=== PATIENT | female | born 1980 | race Caucasian/White ===

== ENCOUNTER 2018-02-21 14:45 | Emergency (ER) | payer BC ==
[2018-02-21] MEDS: KETOROLAC 60 MG INJ IM (16:56)
== END 2018-02-21 17:06 | disposition home or self-care (01) ==
LOC: E/R 14:45 → FTE 17:06
DX: M54.41 Lumbago with sciatica, right side (principal); Z87.891 Personal history of nicotine dependence
CPT/HCPCS: 81025; 96372; 99284-25

== ENCOUNTER 2019-01-23 17:42 | Emergency (ER) | payer BC ==
[2019-01-23] MEDS: LEVALBUTEROL (NEB) 0.63 MG/3 ML AMP INH (18:25)
[2019-01-23] MEDS: ALBUTEROL 0.083% (NEB) 2.5 MG/3 ML AMP NEB (18:40)
[2019-01-23] MEDS: predniSONE 20 MG TAB PO (18:52)
== END 2019-01-23 20:19 | disposition home or self-care (01) ==
LOC: FTE 17:42
DX: J45.901 Unspecified asthma with (acute) exacerbation (principal); Z87.891 Personal history of nicotine dependence
CPT/HCPCS: 71045; 94664; 99284-25